=== PATIENT | female | born 1975 | race Caucasian/White ===

== ENCOUNTER 2016-11-17 10:59 | Emergency (ER) | payer SELFPAY ==
[2016-11-17 11:18] VITALS: BP 114/56
[2016-11-17] MEDS ORDERED: METHYLPREDNISOLONE ACETATE 80 MG/ML VIAL IM ONE (11:39)
[2016-11-17] MEDS ORDERED: METHYLPREDNISOLONE ACETATE 80 MG/ML VIAL ONE (11:41)
--- NOTE | 2016-11-17 11:49 | ERNOTE ---
Integumentary HPI - Narrative Date of Service: 11/17/16 - General Time Seen by Provider: 11/17/16 11:31 Source: patient Exam Limitations: no limitations - Immun/Allergies/Home Medications Allergies/Adverse Reactions: Allergies Allergy/AdvReac Type Severity Reaction Status Date / Time Penicillins Allergy Severe Pain Verified 11/17/16 11:18 Home Medications: HOME MEDICATIONS Cephalexin Monohydrate [Keflex] 500 mg PO QID #40 cap 11/17/16 [Last Taken Unknown] Triamcinolone Acetonide [Kenalog 0.1%] 1 appl TP BID #45 gm 11/17/16 [Last Taken Unknown] predniSONE [Prednisone] 3 tab PO DAILY #9 tab 11/17/16 [Last Taken Unknown] - History of Present Illness Narrative: Pt. comes in with c/o rash on B shins, thighs, forearms, inner elbows, back and neck. Pt. states that she has had treatment for this in the form of steroid burst in the past but it stops working after the last day and the symptoms return. Pt. states that now her L Leg where her rash is swelling down to her foot. Pt. states that there is a yellowish clear drainage crusting her rash. Pt. denies any SOB, CP, NVD, numbness or tingling. Review of Systems - Review of Systems Constitutional: Present: no symptoms reported. Absent: recent illness, fever, chills, weakness, fatigue, malaise EYE: Present: no symptoms reported ENT: Present: no symptoms reported Respiratory: Present: no symptoms reported. Absent: shortness of breath, cough , wheezing Cardiology: Present: no symptoms reported. Absent: chest pain, palpitations, edema Gastrointestinal/Abdominal: Present: no symptoms reported. Absent: nausea, vomiting, diarrhea Genitourinary: Present: no symptoms reported, decreased urinary output Musculoskeletal: Absent: back pain, joint pain Skin: Present: See HPI, rash - generalized Neurological: Present: no symptoms reported. Absent: headache, dizziness/light- headedness, numbness, tingling All Other Systems: All systems neg except as marked - Patient's Past Medical History Patient History - Surgical Procedures: - Family History Mother Family History - Medical: , Other Father Family History - Medical: Family History - Cancer: Prostate - Social History Living Situations: home Have you smoked in the past 12 months: Yes Do you dip or chew tobacco: No Alcohol Use: none Drug Use: none Physical Exam - Physical Exam General Appearance: Present: wd/wn, alert, no apparent distress Eye Exam: Normal inspection: bilateral, PERRL: bilateral, EOMI: bilateral Ears, Nose, Throat: Present: normal ENT inspection, normal pharynx Neck: Present: normal inspection, nontender. Absent: lymphadenopathy (R), lymphadenopathy (L) Respiratory: Present: no respiratory distress, normal breath sounds, no accessory muscle use, chest nontender, lungs clear Cardiovascular/Chest: Present: regular rate, rhythm, no murmur, normal peripheral pulses Gastrointestinal/Abdominal: Present: normal bowel sounds, nontender, nondistended, soft, no organomegaly Back Exam: Present: normal range of motion, no CVA tenderness, no vertebral tenderness Extremity Exam: Present: pedal edema - LLE, other - rednessLLE. Absent: calf tenderness, joint swelling Neurological Exam: Present: alert, oriented, normal mood/affect, no motor/ sensory deficits, time buyer II-XII nml as tested, normal cerebellar test Skin Exam: Present: warm/dry, skin rash - generalized plaquelike with honey crusting as described in HPI ED Progress - Vital Signs Patient's Vital Signs:: I have reviewed the patient's vital signs. Vital Signs: Vital Signs 11/17/16 11:09 Temperature 36.9 C Pulse Rate 90 Respiratory 16 Rate Blood Pressure 114/56 O2 Sat by Pulse 100 Oximetry - Progress/Reassessment Chief Complaint: Rash Departure Clinical Impression: Psoriasis Cellulitis Qualifiers: Site of cellulitis: extremity Site of cellulitis of extremity: lower extremity Laterality: left Qualified Code(s): L03.116 - Cellulitis of left lower limb - Departure Disposition: Home self-care Condition: Good Instructions: Psoriasis, Psoriasis, [id number] Additional Instructions: Please follow up with [facility] in [place] or [place] in 2-3 days to establish care for further treatment of severe psoriasis. Referrals: Dmitriy Thorne MD [Primary Care Provider] - Prescriptions: Cephalexin Monohydrate [Keflex] 500 mg PO QID #40 cap Triamcinolone Acetonide [Kenalog 0.1%] 1 appl TP BID #45 gm predniSONE [Prednisone] 3 tab PO DAILY #9 tab
[2016-11-17 11:56] LABS: Hematocrit 46.7 % (37.0-47.0); Hemoglobin 15.4 gm/dL (12.5-16.0); Mean Cell Volume 90.3 fl (78-100); Mean Corpuscular Hemoglobin 29.8 pg (27-31); Mean Platelet Volume 9.7 fl (6.0-9.5); Neutrophil % 47.9 % (42-75.0); Platelet Count 290 K/mm3 (150-450); Red Blood Count 5.17 M/mm3 (4.2-5.4); Red Cell Distribution Width 12.8 % (11.5-14.0); White Blood Count 8.4 K/mm3 (4.0-10.5)
[2016-11-17 12:40] LABS: Albumin * 3.8 gm/dl (3.4-5.0); Anion Gap 13.3 mmol/L (6.8-13.8); BUN/Creatinine Ratio 9.7 (9.0-21.6); Bilirubin, Total 0.4 mg/dL (0.0-1.1); Ca. Corrected For Albumin 8.9 mg/dL (8.4-10.2); Calcium * 9.1 mg/dL (7.9-10.9); Carbon Dioxide 28.7 mmol/L (24-32.6); Total Protein 7.5 gm/dL (6.2-8.2)
== END 2016-11-17 12:15 | disposition home or self-care (01) ==
LOC: ER 10:59
DX: L40.9 Psoriasis, unspecified (principal); L03.116 Cellulitis of left lower limb